=== PATIENT | male | born 1955 | race Caucasian/White ===

== ENCOUNTER 2018-09-24 19:02 | Emergency (ER) | payer MEDICARE ==
[~2018-09-24] VITALS: Ht 167.6 cm; Wt 68.0 kg
--- NOTE | ~2018-09-24 | EKG ---
[place], [place] ELECTROCARDIOGRAM REPORT NAME: ERWIN REINA UNIT #: [id number] ROOM: DOCTOR: EPIPHANY DRAFT REPORT BIRTHDATE: [birth year] [facility] Test Date: 2018-09-24 Test Time: 20:24:03 Pat Name: ERWIN REINA Department: Room: Gender: Wet Roaster: : 1955 Requested By: REGINA CARTER DNP Order Number: [id number] Reading MD: Philly Spencer MD Measurements Intervals [place] Rate: 103 P: 51 HI: 125 QRS: 12 QRSD: 114 T: 8 QT: 340 QTc: 445 Interpretive Statements Sinus tachycardia Probable left atrial enlargement Incomplete right bundle branch block Electronically Signed On 09-29-2018 9:10:51 PDT by Philly Spencer MD CM:EKGRPT:ELECTROCARDIOGRAM REPORT 23 0910 REGINA HOLLEY DRAFT REPORT REGINA CARTER DNP
[~2018-09-24 19:02] MED LIST: ASPIRIN ADULT L81 M1 PO; AUGMENTIN 875 M1 TA1 PO; LIPITOR10 MG PO; MEDROL DOSEPAK4 MG PO; PREDNISONE50 MG PO; PRINIVIL20 M1 PO; Tessalon Perle100 MG PO; VIBRAMYCIN100 MG PO; ZESTORETIC 12.51 TA2 PO
[2018-09-24 20:12] LABS: BASO % 0.2 % (0.0-1.0); EOS % 0.2 % (1.0-4.0); HEMATOCRIT 40.8 % (42.0-52.0); HEMOGLOBIN 13.1 g/dl (14.0-18.0); LYMPH # 0.4 10*3/uL (1.3-4.4); LYMPH % 6.3 % (27.0-41.0); MEAN CELL VOLUME 94.2 fl (80.0-94.0); MEAN CORPUSCULAR HGB 30.3 pg (27.0-31.0); MEAN CORPUSCULAR HGB CONC 32.1 g/dl (33.0-37.0); MEAN PLATELET VOLUME 11.3 fl (9.6-12.3); MONO # 1.2 10*3/uL (0.1-1.0); MONO % 18.1 % (3.0-9.0); NEUT # 4.9 10*3/uL (2.3-7.9); NEUT % 74.9 % (47.0-73.0); PLATELET COUNT AUTOMATED 201 10*3/uL (130-400); RED BLOOD COUNT 4.33 10*6/uL (4.50-5.90); RED CELL DISTRI WIDTH 13.1 % (0-14.5); WHITE BLOOD COUNT 6.6 10*3/uL (4.8-10.8)
[2018-09-24 20:23] LABS: ACT PARTIAL THROMBO TIME 26.8 SECONDS (20.0-32.1)
[2018-09-24 20:28] LABS: ALBUMIN 3.3 gm/dl (3.1-4.5); ALKALINE PHOSPHATASE 88 U/L (45-117); BUN 12 mg/dl (7-24); CHLORIDE 113 mmol/L (98-107); CREATININE 1.22 mg/dL (0.70-1.30); LIPASE 130 U/L (73-393); POTASSIUM 3.6 mmol/L (3.5-5.1); SGOT/AST 18 IU/L (3-35); SGPT/ALT 24 U/L (12-78); SODIUM 144 mmol/L (136-145); TOTAL PROTEIN 6.2 gm/dL (6.4-8.2)
[2018-09-24 20:34] LABS: TROPONIN I < 0.015 ng/ml (<0.045)
[2018-09-24] MEDS ORDERED: PREDNISONE50 MG PO (20:43)
[2018-09-24] MEDS ORDERED: DOXYCYCLINE100 M3 PO (20:43)
[2018-09-24] MEDS ORDERED: MUCINEX1200 M1 PO (20:43)
== END 2018-09-24 20:46 | disposition home or self-care (01) ==
LOC: ED 19:02
PROVIDERS: Nurse Practitioner Family
DX: J44.1 Chronic obstructive pulmonary disease with (acute) exacerbation (principal); I10 Essential (primary) hypertension; F17.200 Nicotine dependence, unspecified, uncomplicated; Z79.899 Other long term (current) drug therapy; Z79.82 Long term (current) use of aspirin

== ENCOUNTER → 2022-02-10 | Outpatient (CLI) | payer MEDICARE ==
[~2022-02-10] MED LIST changes: +ANORO ELLIPTA1 EACH INH; +DOXYCYCLINE100 M3 PO; +HYDR25T PO; -LIPITOR10 MG PO; +LIPITOR20 MG PO; +MELOXICAM15 MG PO; +METFORMIN HYDR500 MG PO; +MUCINEX1200 M1 PO; +PROVENTIL HFA6.7 GM INH; +Ventolin 02.5 MG/3 M INH; +Zestril,Prinivi40 MG PO; +[UNRECOGNIZED DRUG - OTHER] PO
== END | disposition home or self-care (01) ==
LOC: CARD 01:50
PROVIDERS: ATTEND Internal Medicine
DX: R07.89 Other chest pain (principal); R00.0 Tachycardia, unspecified; I10 Essential (primary) hypertension; J44.9 Chronic obstructive pulmonary disease, unspecified

== ENCOUNTER → 2024-07-18 | Outpatient (CLI) | payer MEDICARE | END | disposition home or self-care (01) | LOC: LAB 10:37 → US 10:37 | PROVIDERS: ATTEND Internal Medicine Nephrology | DX: N28.89 Other specified disorders of kidney and ureter (principal); N18.32 Chronic kidney disease, stage 3b ==

== ENCOUNTER → 2024-08-12 | Outpatient (CLI) | payer MEDICARE ==
[2024-08-12 09:17] LABS: POTASSIUM 3.4 mmol/L (3.4-5.1)
== END | disposition home or self-care (01) ==
LOC: LAB 08:30
PROVIDERS: ATTEND Internal Medicine Nephrology
DX: N17.9 Acute kidney failure, unspecified (principal); N20.0 Calculus of kidney